=== PATIENT | female | born 1975 ===

== ENCOUNTER 2024-08-20 09:51 | Outpatient (CLI) | payer OTHER | END 2024-08-20 10:03 | disposition home or self-care (01) | LOC: SONOGRAMA 09:51 | PROVIDERS: ATTEND Physical Medicine & Rehabilitation Hospice and Palliative Medicine | DX: M25.511 Pain in right shoulder (principal); M75.31 Calcific tendinitis of right shoulder; M75.101 Unspecified rotator cuff tear or rupture of right shoulder, not specified as traumatic ==